=== PATIENT | female | born 1980 | race African-American/Black ===

== ENCOUNTER 2019-01-28 08:29 | Emergency (ER) | payer BC ==
[~2019-01-28] VITALS: Ht 167.6 cm; Wt 90.7 kg
[2019-01-28 08:29] VITALS: BP 128/54
[~2019-01-28 08:29] MED LIST: BIRTH CONTROL PATCH; NAPROSYN500 MG PO; PREDNISONE 20 M20 MG PO
== END 2019-01-28 08:50 | disposition home or self-care (01) ==
LOC: ER 08:29
DX: S83.8X2A Sprain of other specified parts of left knee, initial encounter (principal); X50.0XXA Overexertion from strenuous movement or load, initial encounter; Y92.89 Other specified places as the place of occurrence of the external cause; Y93.89 Activity, other specified; Y99.8 Other external cause status